=== PATIENT | female | born 1990 | race Caucasian/White ===

== ENCOUNTER 2021-04-16 12:24 | Emergency (ER) | payer BC, SELFPAY ==
--- NOTE | 2021-04-16 12:53 | HMH.EDUTC ---
[facility] Disposition Clinical Impression: Viral syndrome, Exposure to COVID-19 virus Disposition: Home, Self-Care Condition on Discharge: Good Instructions: DI for COVID-19 (Suspected or Confirmed ), Preventing the Spread of Coronavirus Discharge Instructions Additional Instructions: Drink plenty of fluids. Take tylenol or ibuprofen for pain or fever. Take the medications as directed. Follow up with your regular doctor. GO TO THE ER FOR ANY WORSENING SYMPTOMS Quarantine until you know the results of your covid-19 test. If it is positive, the health department should call you and give you further instructions about your length of Quarantine and other things. Notify your school or workplace of your results and follow their instructions regarding return to work/school. Prescriptions: Brompheniramine/Pseudoephed/Dm [Bromfed Dm Cough Syrup] 5 ml PO Q6HP PRN #240 ml PRN Reason: Cough Transmission Status: Received by [facility] Ondansetron [Zofran 4mg ODT] 4 mg PO Q8HP PRN #12 tab PRN Reason: Nausea Transmission Status: Received by [id number] Referrals: Provider,Referral, [Primary Care Provider] - Time of Disposition: 14:21 Medical Decision Making - Medical Records Medical records reviewed: No: I reviewed the patient's medical records. - Ramakrishna Inquiry Pt receiving controlled substance: No Vital Signs: 04/16/21 13:03 04/16/21 14:23 Temperature 99.1 F 99.2 F Temperature Source Oral Oral Pulse Rate 100 H Pulse Rate [Right] 104 H Respiratory Rate 20 16 Blood Pressure 110/74 Blood Pressure Source Automatic Cuff Blood Pressure Position Sitting 02 Sat by Pulse Oximetry 95 Oxygen Delivery Method Room Air Room Air - Lab Data Lab results reviewed: Yes: I reviewed the patient's lab results. Lab Results 04/16/21 14:04: Strep Scn Rapid Clinic Negative Orders (Tests/Meds): ORDERS Category Date Time Status Strep Screen Confirmation Stat Micro 04/16/21 14:04 Received [facility] HPI - General Stated complaint: covid tested, possible dehydration Time Seen by Provider: 04/16/21 12:54 - History of Present Illness Provider Complaint: She states that for the past 3 days she has felt bad, had a scratchy throat and a cough. She has had diarrhea also. - Related Data Previous Rx's Medication Instructions Recorded ondansetron 8 mg disintegrating 8 mg PO Q8H PRN 4 Days #12 tab 10/07/19 tablet Brompheniramine/Pseudoephed/Dm 5 ml PO Q6HP PRN #240 ml 04/16/21 [Bromfed Dm Cough Syrup] Ondansetron [Zofran 4mg ODT] 4 mg PO Q8HP PRN #12 tab 04/16/21 Allergies Allergy/AdvReac Type Severity Reaction Status Date / Time latex Allergy Mild mild rash Verified 10/07/19 11:37 pt states that goes away quick [facility] History - Hepatitis A Screen Attestation statement:: This patient has been screened for Hepatitis A risk factors. I have reviewed the patient's past medical history: Yes Other Surgeries: Yes: No Previous Surgery - Social History Smoking Status: Never smoker Alcohol Intake: never Substance Use Type: denies use Occupational Status: employed Housing: house Household Members: family Family Hx:: Non-contributory ROS Obtained: Yes All systems reviewed & no additional complaints - Constitutional Constitutional: Reports system reviewed and no additional complaints, except as docu - Eyes Eyes: Reports system reviewed and no additional complaints, except as docu - ENT Ears, Nose, Mouth, and Throat: Reports system reviewed and no additional complaints, except as docu - Cardiovascular Cardiovascular: Reports system reviewed and no additional complaints, except as docu - Respiratory Respiratory: Reports system reviewed and no additional complaints, except as docu - Gastrointestinal Gastrointestingal: Reports: system reviewed and no additional complaints, except as docu Physical Exam - General General heike
[2021-04-16 13:03] VITALS: PULSE 104; RESP 20; TEMP 37.3; O2SAT 95; BMI 39.9
[2021-04-16 14:23] VITALS: BP 110/74; PULSE 100; RESP 16; TEMP 37.3; O2SAT 98
[2021-04-16 14:54] LABS: UTC Strep Screen (Rapid) Negative (Negative)
== END 2021-04-16 14:24 | disposition home or self-care (01) ==
PROVIDERS: Emergency Provider Nurse Practitioner Family
DX: U07.1 COVID-19 (principal); B34.9 Viral infection, unspecified
CPT/HCPCS: 87880; 99203; C9803; G0463; U0003; U0005

== ENCOUNTER 2025-04-12 16:03 | Outpatient (CLI) | payer OTHER, SELFPAY ==
[2025-04-12 20:21] LABS: Coronavirus 19, PCR Not Detected (NotDetected); Influenza A, PCR Not Detected (NotDetected); Influenza B, PCR Not Detected (NotDetected)
--- OUTSIDE RECORDS SUMMARY | 2025-04-13 10:15 | XMS_ITS | Encounter Summary ---
[facility] Address [address] [place] [address] Care Team Providers Care Infrastructure Solutions Architect Name Role Phone Jazlyn Luu PA-C Primary Care Provider Encounter Details Date Type Department Care Team (Late st Contact Info) Description 01/04/2025 Results Follow-Up [facility] [address] [place] [address] Jazlyn Luu PA-C [address] [place] [address] Social History Tobacco Use Types Packs/Day Years Used Date Smoking Tobacco: Never Smokeless Tobacco: Never Alcohol Use Standard Drinks/Week Comments Not Currently 0 (1 standard drink = 0.6 oz pur e alcohol) Only socially Abuse Screen Answer Date Recorded Feels Unsafe at Home or Work/School no 06/09/2024 Feels Threatened by Someone no 05/28 Does Anyone Try to Keep You From Having Contact with Others or Doing Things Outside Your Home? 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 Not on file Not on file documented as of this encounter Plan of Treatment Upcoming Encounters Date Type Department Care Team (Late st Contact Info) Description 05/03/2025 4:00 PM EDT Office Visit [facility] [address] [place] [id number] Jazlyn Luu PA-C [address] [place] [address] documented as of this encounter Visit Diagnoses Not on filedocumented in this encounter Care Teams Infrastructure Solutions Architect Relationship Specialty Start Date End Date Jazlyn Luu PA-C [address] [place] [address] PCP - General Family Medicine 12/24/24 documented as of this encounter
--- OUTSIDE RECORDS SUMMARY | 2025-04-13 10:15 | XMS_ITS | Clinical Summary ---
Author Organization [facility] Address [address] [place] [address] Care Team Providers Care Agricultural Economics Teacher Name Role Phone Jazlyn Luu PA-C Primary Care Provider Allergies Active Allergy Reactions Criticality Noted Date Comments Latex Itching,Rash Low 08/31/2017 Medications valACYclovir (VALTREX) 500 MG tablet Take 1 tablet by mouth Daily. 4 Active sertraline (Zoloft) 50 MG tabletIndicatio ns:Anxiety Take 1 tablet by mouth Daily. Take 1/2 tablet for the first week and then 1 tablet thereafter. 90 tablet 1 5 Active albuterol sulfate HFA 108 (90 Base) MCG/ACT inhaler Inhale 2 puffs Every 4 (Four) Hours As Needed for Shortness of Air. 18 g 1 5 Active busPIRone (BUSPAR) 5 MG tabletIndicatio ns:Anxiety Take 1 tablet by mouth 3 (Three) Times a Day. 60 tablet 5 Active Active Problems Problem Noted Date Diagnosed Date Annual visit for general cal lt medical examination without abnormal findings 12/24/2024 Assessment & Plan (12/24/2024 3:23 PM EDT): Health advice: healthy food choices with fresh fruits and vegetables, maintain sleep pattern at least 8 hours, avoid texting and distracted driving practices; wear safety belt, engage in regular exercise, maintain healthy weight, use safe sex practices, avoid alcohol and illicit drugs. Maintain immunizations that are up to date. Maintain health maintenance: Pap, etc. Follow up with PCP if struggling with depression or anxiety. Keep regular dental and eye exams. [place] and floss teeth daily. F/U annually and prn. Anxiety 12/24/2024 Assessment & Plan (01/25/2025 4:31 PM EDT): Anxiety is improving Continue Zoloft as prescribed Take Buspar as needed for anxiety/panic Recommend therapy to help improve coping skills Return in 3 months or sooner if needed Assessment & Plan (12/24/2024 3:23 PM EDT): Initiate Zoloft Discussed mechanism of medication and potential adverse effects Return in 4 weeks Chest pain, atypical 07/13/2024 Dyspnea on exertion 07/13/2024 Palpitations 07/13/2024 Herpes Overview (05/10/2021): Genitalis; infrequent outbreaks. Rx Acyclovir 400 mg tid prn. Obesity (BMI 30-39.9) Screening for cervical cancer Overview (05/21/2021): Last pap 2017; negative. Pap done 05/10/21 nondiagnostic; repeat at no charge. Resolved Problems Problem Noted Date Diagnosed Date Resolved Date Cholestasis during in third trimester 09/03/2017 05/10/2021 Encounters Date Type Department Care Team Description 01/25/2025 4:00 PM EDT Office Visit [facility] [address] [place] [address] Jazlyn Luu PA-C Anxiety (Primary Dx) 01/25/2025 Travel from Last 3 Months Family History Medical History Relation Name Comments Heart disease Maternal Grandfather Davidson Hicks Heart failure Maternal Grandfather Davidson Hicks Anxiety disorder Mother Suzie Diabetes Mother Suzie Hypertension Mother Suzie Diabetes Other Family History Hypertension Other Family History Aneurysm Paternal Grandmother Cervical cancer Sister 1 Diabetes Sister 2 Geoff Liver disease Sister 2 Geoff Relation Name Status Comments Maternal Grandfather Davidson Hicks Mother Suzie Alive Other Family History Paternal Grandmother Sister 1 Alive Sister 2 Geoff Alive Social History Tobacco Use Types Packs/Day Years Used Date Smoking Tobacco: Never Smokeless Tobacco: Never Tobacco Cessation:Counseling Given: Not Answered Alcohol Use Standard Drinks/Week Comments Not Currently [...] file Not on file Not on file Last Filed Vital Signs Vital Sign Reading Time Taken Comments Blood Pressure 120/72 01/25/2025 3:56 PM EDT Pulse 80 01/25/2025 3:56 PM EDT Temperature 37.1 C (98.7 F) 01/25/2025 3:56 PM EDT Respiratory Rate 18 01/25/2025 3:56 PM EDT Oxygen Saturation 98% 01/25/2025 3:56 PM EDT Inhaled Oxygen Concentration - - Weight 108 kg (237 lb) 01/25/2025 3:56 PM EDT Height 165.1 cm (5' 5 ) 01/25/2025 3:56 PM EDT Body Mass Index 39.44 01/25/2025 3:56 PM EDT Plan of Treatment Upcoming Encounters Date Type Department Care Team (Late st Contact Info) Description 05/03/2025 4:00 PM EDT Office Visit [facility] [address] [place] [address] Jazlyn Luu PA-C [address] [place] [address] Health Maintenance Due Date Last Done Comments TDAP/TD VACCINES (1 - Tdap) 2011 HEPATITIS C SCREENING 09/03/2017 Annual Gynecologic Pelvic an d Breast Exam 05/11/2022 05/10/2021 PAP SMEAR 2024 2021 COVID-19 Vaccine (2023-2 5 season) 2025 INFLUENZA VACCINE 04/27/2025 ANNUAL PHYSICAL 12/24/2025 12/24/2024 Pneumococcal Vaccine 0-49 Aged Out 02/13/2007 No longer eligible based on patient's age to complete this topic Procedures Procedure Name Priority Date/Time Associated Diagnosis Comments PAP IG, RFX HPV ASCU ([facility]) Routine 2021 4:54 PM EDT Pap test, as part of routine gynecological examination from Last 3 Months or Most Recently Relevant to Health Maintenance Results * Pap IG, Rfx HPV ASCU (2021 4:54 PM EDT) ThinPrep Vial Specimen from cervix or vagina / Unknown us Alberto Brantley MD PATHOLOGY/CYTOLOGY ORDERAB LES Final Result [facility]
[address] [place] [address], from Last 3 Months or Most Recently Relevant to Health Maintenance Insurance [employer] Advance Directives * Full Code (Latest Code Status on File) Date Activated Date Inactivated Comments 09/04/2017 9:47 PM 09/06/2017 5:27 PM * Full Code Date Activated Date Inactivated Comments 09/03/2017 3:14 PM 09/04/2017 9:47 PM Care Teams Agricultural Economics Teacher Relationship Specialty Start Date End Date Jazlyn Luu PA-C [address] [facility] [place] [address] PCP - General Family Medicine 12/24/24
== END 2025-04-12 23:59 ==
LOC: LAB.DROPOF 04-13 10:12
PROVIDERS: PCP Student in an Organized Health Care Education/Training Program; Visit Provider Student in an Organized Health Care Education/Training Program
DX: J02.9 Acute pharyngitis, unspecified (principal); R53.83 Other fatigue
CPT/HCPCS: 87636

== ENCOUNTER 2025-07-09 07:17 | Emergency (ER) | payer OTHER, SELFPAY ==
[2025-07-09 07:18] VITALS: BP 142/91; PULSE 85; RESP 20; TEMP 36.5; O2SAT 99; BMI 39.4
--- OUTSIDE RECORDS SUMMARY | 2025-07-09 07:26 | XMS_ITS ---
Author Organization Unknown ENCOUNTERS Encounter Performer Location Date Diagnosis [place] [address] [id number] [place] [address] [id number] [place] [address] [id number] SHANEL *Note: Encounters from your own facility or health system may be excluded. Allergies, Adverse Reactions, Alerts Allergen Type Severity Identification Date latex drug allergy 2 [id number] Medications Name Date Quantity Days Supplied [facility] Number
--- OUTSIDE RECORDS SUMMARY | 2025-07-09 07:26 | XMS_ITS | Clinical Summary ---
Author Organization [facility] Address [address] [place] [address] Care Team Providers Care Clinical Account Specialist Name Role Phone Ariel Lima MD Primary Care Provider Allergies No known active allergies Medications No known medications Social History Tobacco Use Types Packs/Day Years Used Date Smoking Tobacco: Never Smokeless Tobacco: Never Tobacco Cessation:Counseling Given: Not Answered Comments No Sex and Gender Information Value Date Recorded Sex Assigned at Not on file Legal Sex Female 12:40 PM EST Gender Identity Not on file Sexual Orientation Not on file Last Filed Vital Signs Vital Sign Reading Time Taken Comments Blood Pressure 128/84 06/23/2022 11:19 AM EST Pulse 87 06/23/2022 11:19 AM EST Temperature 36.2 C (97.2 F) 06/23/2022 11:19 AM EST Respiratory Rate 18 06/23/2022 11:19 AM EST Oxygen Saturation 98% 06/23/2022 11:19 AM EST Inhaled Oxygen Concentration - - Weight 102 kg (225 lb) 06/23/2022 11:19 AM EST Height 165.1 cm (5' 5 ) 06/23/2022 11:19 AM EST Body Mass Index 37.44 06/23/2022 11:19 AM EST Plan of Treatment Not on file Medical Devices Not on file Insurance [facility] Care Teams Clinical Account Specialist Relationship Specialty Start Date End Date Ariel Lima MD [address] [place] [address] PCP - General Internal Medicine 06/23/22
--- OUTSIDE RECORDS SUMMARY | 2025-07-09 07:26 | XMS_ITS | Clinical Summary ---
Author Organization [facility] Address [address] [place] [address] Care Team Providers Care Can Line Operator Name Role Phone Jazlyn Luu PA-C Primary [...] anxiety. Keep regular dental and eye exams. [place] and floss teeth daily. F/U annually and [...] Cholestasis during in third trimester 09/03/2017 05/10/2021 Family History Medical History Relation Name Comments [...] 01/25/2025 3:56 PM EDT Plan of Treatment Health Maintenance Due Date Last Done Comments TDAP/TD VACCINES (1 - Tdap) 2011 HEPATITIS C SCREENING 09/03/2017 Annual Gynecologic Pelvic an d Breast Exam 05/11/2022 05/10/2021 PAP SMEAR 2024 2021 INFLUENZA VACCINE 02/25/2025 ANNUAL PHYSICAL 12/24/2025 12/24/2024 Pneumococcal Vaccine 0-49 [...] Result [facility]
[address] [place] [address], [place] [phone] from Last 3 Months or Most Recently Relevant to Health Maintenance Insurance [employer] Advance Directives * Full Code (Latest Code Status on File) Date Activated Date Inactivated Comments 09/04/2017 9:47 PM 09/06/2017 5:27 PM * Full Code Date Activated Date Inactivated Comments 09/03/2017 3:14 PM 09/04/2017 9:47 PM Care Teams Can Line Operator Relationship Specialty Start Date End Date Jazlyn Luu PA-C [address] [place] [address] PCP - General Family Medicine 12/24/24
--- OUTSIDE RECORDS SUMMARY | 2025-07-09 07:26 | XMS_ITS | Encounter Summary ---
Author Organization [facility] Address [address] [place] [address] Care Team Providers Care Line Producer Name Role Phone Jazlyn Luu PA-C Primary Care Provider [phone] Encounter Details Date Type Department Care Team (Late st Contact Info) Description 01/04/2025 Results Follow-Up [facility] [address] [place] [address] Jazlyn Luu PA-C [address] [place] [address] Social History Tobacco Use Types [...] as of this encounter Plan of Treatment Not on file documented as of this encounter Visit Diagnoses Not on filedocumented in this encounter Care Teams Line Producer Relationship Specialty Start Date End Date Jazlyn Luu PA-C [address] [place] [address] PCP - General Family Medicine 12/24/24 documented as of this encounter
--- NOTE | 2025-07-09 07:42 | HMH.EDGENADL ---
Discharge Plan Disposition Chief Complaint: Animal Bite Prescriptions Prescriptions: No Action albuterol sulfate 90 mcg/actuation HFA aerosol inhaler inhalation Patient Comments: INHALE 2 PUFFS BY MOUTH EVERY 4 HOURS NEEDED FOR SHORTNESS OF BREATH methylprednisolone [Medrol (Yeyo)] 4 mg tablets,dose pack See Rx Instructions PO PER PKG DIR Qty: 21 0RF Rx Instructions: PO PER PKG DIR for 6 days amoxicillin-pot clavulanate 875-125 mg tablet 1 tab PO BID 10 Days Qty: 20 0RF sertraline 50 mg tablet PO DAILY Patient Comments: TAKE 1/2 (ONE-HALF) TABLET BY MOUTH ONCE DAILY FOR THE FIRST WEEK THEN TAKE 1 TABLET BY MOUTH DAILY THEREAFTER omeprazole 20 mg capsule,delayed release(DR/EC) 20 mg PO DAILY Qty: 30 0RF Referrals Follow up/Referrals: Guillermo Palomo [Primary Care Provider, Medical] - See instructions Activity Restrictions/Add. Instructions Additional Instructions/Restrictions: Today being day 0 please come back on day 3 7 and 14 for repeat vaccinations. Today you were given the rabies vaccine and immunoglobulin. Clinical Impressions Clinical Impression: Exposure to bat without known bite Instructions Patient Instructions: Animal Bites Print Language Print Language: Gibraltarian Discharge ED Provider: Chapo Pereira General Adult HPI General Chief complaint: Animal Bite Stated complaint: check for rabies, bat in apt Time Seen by Provider: 07/09/25 07:25 Mode of Arrival: Ambulatory Source of Information: Patient Description of Symptoms (Recalled from ER Triage Doc. by RN): pt woke up this morning to bat in her apt and wants to be treated prophylactically per internet recommendations History of Present Illness HPI narrative: Patient is a 35-year-old female who presents today after being exposed to a bat that was in her household with no definitive bite. States that she has known about bats being in the roof of the location where she lives but is never mated to a inside she is unsure as to how long it has been there. No other known exposures were in the household her son who intermittently lives there has not been there for several days. He is not with her today. Related Data Home Medications ?Medication ?Instructions ?Recorded ?Confirmed sertraline 50 mg tablet mg PO DAILY 01/18/25 04/18/25 albuterol sulfate 90 mcg/actuation inhalation 04/18/25 04/18/25 aerosol inhaler Previous Rx's ?Medication ?Instructions ?Recorded omeprazole 20 mg capsule,delayed 20 mg PO DAILY #30 caps 01/18/25 release amoxicillin 875 mg-potassium 1 tab PO BID 10 days #20 tabs 04/18/25 clavulanate 125 mg tablet methylprednisolone 4 mg tablets in See Rx Instructions PO PER PKG DIR 04/18/25 a dose pack (Medrol (Eyyo)) #21 tabs Allergies Allergy/AdvReac Type Severity Reaction Status Date / Time latex Allergy Mild mild rash Verified 04/18/25 14:07 pt states that goes away quick [facility] Disclaimer: The information contained in this section may have been updated after the patient was seen, as this information can be updated by other users. Medical History (Updated 07/09/25 @ 07:42 by Chapo Pereira MD) Sinusitis Pharyngitis No active medical problems Surgical History History of tonsillectomy History of adenoidectomy Social History Smoking Status: Never smoker alcohol intake: never substance use type: denies use current occupational status: employed Travel in the last 8 weeks?: None household members: family housing: house Have you lived/traveled outside US in past 30 days?: No Contact w/someone who lives/traveled outside US past 30 days?: No Exposure to someone with infectious disease in past 14 days?: No Do you have a fever (greater than 100.4 F or 38 C)?: No Have you tested positive for COVID-19?: No Exposed to someone with COVID-19 in past 14 days?: No Do you have a sore throat?: No Do you have a cough?: No Do you have any weakness?: No Do you have any diarrhea?: No Are you experiencing any unusual bleeding?: No Do you have any muscle aches/pain?: No Do you have any abdominal pain?: No Are you experiencing loss of taste or smell?: No Other Medical History Have you received the Pneumonia Vaccine: No ROS Obtained: Yes All systems reviewed & no additional complaints except as documented Physical Exam General General appearance: alert and in no apparent distress Respiratory Respiratory exam: Present normal lung sounds bilaterally Cardiovascular Cardiovascular exam: Present regular rate Neurological Exam Neurological exam: Present alert and oriented X3 Medical Decision Making Medical Records Screening: Per USPSTF and CDC recommendations, given the prevalence of disease in our region, it is our hospital?s policy to screen for HIV and viral Hepatitis for all patients aged 18 and over and those with ongoing risk factors. aRmakrishna Inquiry Pt receiving controlled substance: No Vital Signs: 07/09/25 07:18 Temperature 97.7 F Temperature Source Oral Pulse Rate [Left Radial] 85 Respiratory Rate 20 Blood Pressure [Right Arm] 142/91 H Blood Pressure Mean [Right Arm] 108 02 Sat by Pulse Oximetry 99 Oxygen Delivery Method Room Air Orders (Tests/Meds): ED MEDICATIONS Generic Name Dose Route Start Last Admin Trade Name Freq PRN Reason Stop Dose Admin Rabies Immune Globulin 2,140 unit 07/09/25 07:36 Rabies Immune Globulin/Pf 300 Unit/Ml 5ml Vial IM 07/09/25 07:37 ONCE ONE Rabies Vaccine 2.5 unit 07/09/25 07:36 Rabies Vaccine (Pcec)/Pf 2.5 Unit Vial IM 07/09/25 07:37 .ONCE ONE Medical Decision Narrative: Per CDC recommendations when there is an exposure to a bat at night in particular which is the case today recommendations are to give the full vaccination series patient is previously unvaccinated she is also going to be given immunoglobulin today. No obvious bat bite today. The bat is still likely in her house I recommended that she try to find someone to capture the bat and to have it tested for rabies at the state lab in [place] and if that is the case and it is negative she may discontinue the remainder of the vaccination series however today we went ahead and initiated it. If she is unable to do that she will complete the vaccination series on days 3 7 and 14 and return outpatient orders have been sent. Critical Care Critical Care Time Critical Care Time: No
[2025-07-09] MEDS: RABIES VACCINE (PCEC)/PF 2.5 UNIT VIAL IM (08:07)
[2025-07-09] MEDS: RABIES IMMUNE GLOBULIN/PF 300 UNIT/ML 5ML VIAL 2140 UNIT IM (08:11)
[2025-07-09 08:24] VITALS: BP 123/69; PULSE 80; RESP 20; TEMP 36.7; O2SAT 98
== END 2025-07-09 08:25 | disposition home or self-care (01) ==
PROVIDERS: Emergency Provider Student in an Organized Health Care Education/Training Program; PCP Pediatrics
DX: Z20.3 Contact with and (suspected) exposure to rabies (principal); Z29.14 Encounter for prophylactic rabies immune globulin
CPT/HCPCS: 90375; 90471; 90675; 96372; 99284

== ENCOUNTER 2025-07-13 17:17 | Outpatient (CLI) | payer OTHER, SELFPAY ==
[2025-07-13 17:24] VITALS: BMI 33.3
--- OUTSIDE RECORDS SUMMARY | 2025-07-13 17:24 | XMS_ITS | Encounter Summary ---
[facility] Address [address] [place] [address] Care Team Providers Care Children'S Entertainer Name Role Phone Jazlyn Luu PA-C Primary Care Provider Encounter Details Date Type Department Care Team (Late st Contact Info) Description 01/04/2025 Results Follow-Up [facility] [address] [place] [address] Jazlyn Luu PA-C [address] [place] [address] Social History Tobacco Use Types [...] on filedocumented in this encounter Care Teams Children'S Entertainer Relationship Specialty Start Date End Date Jazlyn Luu PA-C [address] [place] [address] PCP - General Family Medicine 12/24/24 documented as of this encounter
--- OUTSIDE RECORDS SUMMARY | 2025-07-13 17:24 | XMS_ITS | Clinical Summary ---
Author Organization [facility] Address [address] [place] [address] Care Team Providers Care Order Builder Name Role Phone Jazlyn Luu PA-C Primary Care Provider [phone] Allergies Active Allergy Reactions Criticality Noted Date [...] anxiety. Keep regular dental and eye exams. [place] and floss teeth daily. F/U annually and [...] Result [facility]
[address] [place] [address], [place] [phone] from Last 3 Months or Most Recently Relevant to Health Maintenance Insurance [employer] Advance Directives * Full Code (Latest Code Status on File) Date Activated Date Inactivated Comments 09/04/2017 9:47 PM 09/06/2017 5:27 PM * Full Code Date Activated Date Inactivated Comments 09/03/2017 3:14 PM 09/04/2017 9:47 PM Care Teams Order Builder Relationship Specialty Start Date End Date Jazlyn Luu PA-C [address] [place] [address] PCP - General Family Medicine 12/24/24
[2025-07-13 17:25] VITALS: BMI 34.3
[2025-07-13] MEDS: RABIES VACCINE (PCEC)/PF 2.5 UNIT VIAL IM (17:39)
[2025-07-13 17:42] VITALS: BP 105/62; PULSE 80; RESP 20; TEMP 36.9; O2SAT 99
== END 2025-07-13 17:43 | disposition home or self-care (01) ==
PROVIDERS: PCP Pediatrics; Visit Provider Emergency Medicine
DX: T75.89XA Other specified effects of external causes, initial encounter (principal); Z23 Encounter for immunization
CPT/HCPCS: 90471; 90675; 96372

== ENCOUNTER 2025-07-18 17:22 | Outpatient (CLI) | payer OTHER, SELFPAY ==
--- OUTSIDE RECORDS SUMMARY | 2025-07-18 17:30 | XMS_ITS | Clinical Summary ---
Author Organization [facility] Address [address] [place] [address] Care Team Providers Care Speeder Worker Name Role Phone Jazlyn Luu PA-C Primary [...] anxiety. Keep regular dental and eye exams. Melfa and floss teeth daily. F/U annually and [...] Relation Name Comments Heart disease Maternal Grandfather Davidsno Hicks Heart failure Maternal Grandfather Davidson Hicks [...] Result [facility]
[address] [place] [address], [place] [phone] from Last 3 Months or Most Recently Relevant to Health Maintenance Insurance [employer] Advance Directives * Full Code (Latest Code Status on File) Date Activated Date Inactivated Comments 09/04/2017 9:47 PM 09/06/2017 5:27 PM * Full Code Date Activated Date Inactivated Comments 09/03/2017 3:14 PM 09/04/2017 9:47 PM Care Teams Speeder Worker Relationship Specialty Start Date End Date Jazlyn Luu PA-C [address] [place] [address] PCP - General Family Medicine 12/24/24
--- OUTSIDE RECORDS SUMMARY | 2025-07-18 17:30 | XMS_ITS | Encounter Summary ---
Author Organization [facility] Address [address] [place] [address] Care Team Providers Care Office Agent Name Role Phone Jazlyn Luu PA-C Primary Care Provider Encounter Details Date Type Department Care Team (Late st Contact Info) Description 01/04/2025 Results Follow-Up [facility] FAMILY MEDICINE [address] [place] [address] Jazlyn Luu PA-C [address] [place] [address] Social History Tobacco Use Types [...] on filedocumented in this encounter Care Teams Office Agent Relationship Specialty Start Date End Date Jazlyn Luu PA-C [address] [place] [address] PCP - General Family Medicine 12/24/24 documented as of this encounter
[2025-07-18] MEDS: RABIES VACCINE (PCEC)/PF 2.5 UNIT VIAL IM (18:10)
== END 2025-07-18 23:59 | disposition home or self-care (01) ==
LOC: ED.OUT 17:28 → INF 17:49
PROVIDERS: PCP Pediatrics; Visit Provider Student in an Organized Health Care Education/Training Program
DX: T75.89XA Other specified effects of external causes, initial encounter (principal)
CPT/HCPCS: 90675; 96372

== ENCOUNTER 2025-07-26 21:04 | Outpatient (CLI) | payer OTHER, SELFPAY ==
--- OUTSIDE RECORDS SUMMARY | 2025-07-26 21:08 | XMS_ITS ---
Author Organization Unknown ENCOUNTERS Encounter Performer Location Date Diagnosis [place] [address] [id number] [place] [address] [id number] [place] [address] [id number] SHANEL *Note: Encounters from your own facility or health system may be excluded. Allergies, Adverse Reactions, Alerts Allergen Type Severity Identification Date latex drug allergy 2 [id number] Medications Name Date Quantity Days Supplied [facility] Number
--- OUTSIDE RECORDS SUMMARY | 2025-07-26 21:08 | XMS_ITS | Clinical Summary ---
Author Organization [facility] Address [address] [place] [address] Care Team Providers Care Resident Care Aide Name Role Phone Jazlyn Luu PA-C Primary [...] anxiety. Keep regular dental and eye exams. [place]uffin and floss teeth daily. F/U annually and [...] Result [facility]
[address] [place] [address], [place] [phone] from Last 3 Months or Most Recently Relevant to Health Maintenance Insurance [employer] Advance Directives * Full Code (Latest Code Status on File) Date Activated Date Inactivated Comments 09/04/2017 9:47 PM 09/06/2017 5:27 PM * Full Code Date Activated Date Inactivated Comments 09/03/2017 3:14 PM 09/04/2017 9:47 PM Care Teams Resident Care Aide Relationship Specialty Start Date End Date Jazlyn Luu PA-C [address] [place] [address] PCP - General Family Medicine 12/24/24
--- OUTSIDE RECORDS SUMMARY | 2025-07-26 21:08 | XMS_ITS | Encounter Summary ---
Author Organization [facility] Address [address] [place] [address] Care Team Providers Care Sales Assistant Displays Name Role Phone Jazlyn Luu PA-C Primary Care Provider [phone] Encounter Details Date Type Department Care Team (Late st Contact Info) Description 01/04/2025 Results Follow-Up [facility] FAMILY MEDICINE [address] [place] [address] Jazlyn Luu PA-C [address] [place] [address] Social History Tobacco Use Types [...] on filedocumented in this encounter Care Teams Sales Assistant Displays Relationship Specialty Start Date End Date Jazlyn Luu PA-C [address] [place] [address] PCP - General Family Medicine 12/24/24 documented as of this encounter
[2025-07-26 21:19] VITALS: BMI 36.8
[2025-07-26 21:22] VITALS: BP 121/65; PULSE 86; RESP 18; TEMP 36.8; O2SAT 98
[2025-07-26] MEDS: RABIES VACCINE (PCEC)/PF 2.5 UNIT VIAL IM (21:28)
[2025-07-26 21:35] VITALS: BP 103/45; PULSE 87; RESP 18; TEMP 36.7; O2SAT 98
== END 2025-07-26 21:35 | disposition home or self-care (01) ==
PROVIDERS: PCP Pediatrics; Visit Provider Student in an Organized Health Care Education/Training Program
DX: T75.89XA Other specified effects of external causes, initial encounter (principal)
CPT/HCPCS: 90675; 96372